=== PATIENT | female | born 1965 | race Caucasian/White ===

== ENCOUNTER 2024-10-02 13:48 | Outpatient (CLI) | payer BC | END 2024-10-02 23:59 | disposition home or self-care (01) | LOC: MRI02 13:48 | PROVIDERS: ATTEND Physician Assistant | DX: M47.22 Other spondylosis with radiculopathy, cervical region (principal); M48.02 Spinal stenosis, cervical region; M62.838 Other muscle spasm; M54.2 Cervicalgia | CPT/HCPCS: 72141 ==